=== PATIENT | male | born 1970 | race Caucasian/White ===

== ENCOUNTER → 2016-07-27 | Outpatient (CLI) | payer OTHER ==
[~2016-07-27] MED LIST: CARAFATE PO; CHOL MED; IBUPROFEN PO; NEXIUM PO; VOLTAREN75 MG PO; ZOLOFT
--- NOTE | ~2016-07-27 | ST ---
Unit #: [id number] #: [id number] Patient: TARAH STRAUSS [id number] [facility]. [address] [address] [id number] MR#: [id number] NAME: TARAH STRAUSS : 1970 SEX: M STUDY DATE/TIME: 08/06/2016 UNIT: CEKG ROOM: STUDY DESCRIPTION: Attending Physician: Iván Longoria M.D. Referring Physician: Iván Longoria M.D. Primary Care Physician: Tarun Marmolejo M.D. CARDIOLOGY REPORT EXAM Regular Treadmill Stress Test. Resting heart rate is 68 and resting blood pressure is 114/76 mmHg. Baseline EKG shows normal sinus rhythm. No significant ST or T wave changes. PROCEDURE Patient was made to exercise on a standard Neri protocol. Total exercise time is 8 minutes completing 2 minutes of stage 3 on a standard Neri protocol. The test was stopped because target heart rate achieved. No complaints of chest pain or extreme shortness of breath. Maximum heart rate obtained is 164 which is 95% of maximal predicted heart rate. Maximum blood pressure obtained is 180/100 mmHg. Patient had 0.[address] and T wave changes noted diffusely. No arrhythmias seen. CONCLUSION 1. Fair exercise tolerance. 2. There is no clinical, hemodynamic, or EKG evidence of ischemia at moderate workload (95% of maximal predicted heart rate, 10.1 METS). 3. Normal heart rate and blood pressure response. 4. Normal regular treadmill stress test. 1. Dictated by... Shena Rico M.D. PA/sabino TD: 08/06/2016 14:16 JOB #: [id number] CARDIOLOGY REPORT Page 1 of 1 X Shena Rico MD <ELECTRONICALLY SIGNED> 11/28/16 1429 CARDIOLOGY REPORT
== END | disposition home or self-care (01) ==
LOC: CEKG 07:36
DX: R07.9 Chest pain, unspecified (principal)
CPT/HCPCS: 93017